=== PATIENT | female | born 1935 | race Caucasian/White ===

== ENCOUNTER 2019-07-16 19:42 | Inpatient (IN) | payer MEDICARE, OTHER ==
[~2019-07-16] VITALS: Ht 157.5 cm; Wt 46.6 kg
[2019-07-16] MEDS ORDERED: dilTIAZem 25 MG/5 ML VIAL IV ONE (21:00)
[2019-07-16 21:33] LABS: Basophils # (auto) 0.1 10 ^3/uL (0-0.2); Eosinophils # (auto) 0.1 10 ^3/uL (0-0.8); Platelet Count (auto) 186 10^3/uL (140-450)
[2019-07-16 21:36] LABS: Basophils % (auto) 0.9 % (0.0-2.0); Eosinophils % (auto) 0.9 % (0.0-7.0); Hematocrit 35.6 % (36.0-46.0); Hemoglobin 10.4 g/dL (12.2-16.2); Lymphocytes # (auto) 1.6 10 ^3/uL (0.4-5.4); Lymphocytes % (auto) 13.4 % (10.0-50.0); Mean Corpuscular Hemoglobin 25.6 pg (28.0-32.0); Mean Corpuscular Hgb Conc. 29.3 g/dL (32.0-36.0); Mean Corpuscular Volume 87.2 fL (80.0-100.0); Monocytes # (auto) 0.9 10 ^3/uL (0-1.3); Monocytes % (auto) 7.7 % (0.0-12.0); Neutrophils # (auto) 9.1 10 ^3/uL (1.6-8.6); Neutrophils % (auto) 77.1 % (37.0-80.0); Nucleated Red Blood Cells % 0.5 %; Red Blood Cells 4.08 10^6/uL (4.0-5.20); Red Cell Distribution Width 20.2 % (11.8-14.3); White Blood Cell 11.8 10^3/uL (4.4-10.8)
[2019-07-16 21:44] LABS: INR 1.44 (0.9-1.15); Partial Thromboplastin Time 28.4 sec (23.64-32.05)
[2019-07-16 21:58] LABS: Albumin 2.6 g/dL (3.4-5.0); Anion Gap 13 (5-15); Calcium 8.2 mg/dL (8.5-10.1); Carbon Dioxide 16 mmol/L (21-32); Chloride 110 mmol/L (98-107); Glucose 119 mg/dL (74-106); Potassium 4.9 mmol/L (3.5-5.1); Sodium 139 mmol/L (136-145)
[2019-07-16 22:00] LABS: Alanine Aminotransferase 34 U/L (13-56); Aspartate Aminotransferase 36 U/L (15-37); BUN/Creatinine Ratio 21.5; GFR African American 11 mL/min; GFR Non-African American 9 mL/min
[2019-07-16 22:02] LABS: Alkaline Phosphatase 146 U/L (45-117); Bilirubin, Total 0.7 mg/dL (0.2-1.0)
[2019-07-16 22:05] LABS: Blood Urea Nitrogen 102 mg/dL (7-18); Lactic Acid w/Reflex 4.5 mmol/L (0.4-2.0)
[2019-07-16] MEDS ORDERED: cefTRIAXone 1GM/50ML D5W 50 ML IV ONE (22:30)
[2019-07-16] MEDS ORDERED: PIPERACILLIN-TAZOB 2.25GM 50 ML IV ONE (22:30)
[2019-07-17] MEDS ORDERED: LORazepam 2MG/ML-1ML VIAL IV ONE (01:45)
[2019-07-17 02:46] LABS: Urine Amorphous Crystal FEW /hpf (None Seen); Urine Bacteria MOD /hpf (None Seen); Urine Blood Negative /uL (Negative); Urine Budding Yeast FEW /hpf (None Seen); Urine Hyaline Cast MOD /lpf (0 - 2); Urine Specific Gravity 1.019 (1.001-1.035)
[2019-07-17 02:48] LABS: Urine WBC 5 /hpf (0 - 5)
[2019-07-17] MEDS ORDERED: ONDANSETRON HCL 4 MG/2 ML VIAL IV PRN (03:15)
[2019-07-17] MEDS ORDERED: TEMAZEPAM 15 MG CAP PO PRN (03:15)
[2019-07-17] MEDS ORDERED: FUROSEMIDE 20 MG/2 ML VIAL IV ONE (03:15)
[2019-07-17] MEDS ORDERED: ACETAMINOPHEN 325 MG TAB PO PRN (03:15)
[2019-07-17] MEDS ORDERED: NITROGLYCERIN 0.4 MG SL TAB SL PRN (03:30)
[2019-07-17] MEDS ORDERED: MORPHINE SULF INJ 2 MG/ML SYRINGE 1ML IV PRN (03:30)
[2019-07-17] MEDS ORDERED: ALBUMIN 5% 250 ML IV ONE (03:45)
[2019-07-17 05:15] VITALS: BP 108/65
[2019-07-17] MEDS: CLINDAMYCIN 600MG IV 50 ML IV SCH ×3 (06:28→22:34)
[2019-07-17 07:57] LABS: BUN/Creatinine Ratio 22.4; Potassium 4.1 mmol/L (3.5-5.1)
[2019-07-17 09:00] VITALS: BP 99/66
[2019-07-17] MEDS ORDERED: SODIUM CHLORIDE 0.9% 1,000 ML IV SCH (09:30)
[2019-07-17] MEDS: CARVEDILOL 3.125 MG TAB PO SCH ×2 (10:00→22:33)
[2019-07-17] MEDS: ASPirin 81 mg TAB PO SCH (10:00)
[2019-07-17] MEDS: PANTOPRAZOLE 40 MG TAB PO SCH (10:00)
[2019-07-17 10:49] LABS: INR 1.35 (0.9-1.15)
[2019-07-17 13:00] VITALS: BP 98/48
[2019-07-17] MEDS: FUROSEMIDE 40 MG/4 ML VIAL IV SCH ×2 (13:23→18:00)
[2019-07-17 17:00] VITALS: BP 107/54
[2019-07-17] MEDS ORDERED: WARFARIN SODIUM 2 MG TAB PO ONE (17:00)
[2019-07-17] MEDS ORDERED: FUROSEMIDE 20 MG/2 ML VIAL IV SCH (18:00)
[2019-07-17] MEDS ORDERED: cefTRIAXone 1GM/50ML D5W 50 ML IV SCH (21:00)
[2019-07-17 22:00] VITALS: BP 135/73
[2019-07-17] MEDS ORDERED: ATORVASTATIN 20 MG TAB PO SCH (22:00)
[2019-07-17] MEDS: METOPROLOL TARTRATE 25 MG TAB PO SCH (22:34)
[2019-07-18 05:00] VITALS: BP 100/60
[2019-07-18] MEDS: CLINDAMYCIN 600MG IV 50 ML IV SCH ×2 (05:39→13:47)
[2019-07-18] MEDS: FUROSEMIDE 40 MG/4 ML VIAL IV SCH ×3 (05:40→17:26)
[2019-07-18 06:18] VITALS: BP 107/54
[2019-07-18 06:50] LABS: Basophils # (auto) 0.1 10 ^3/uL (0-0.2); Eosinophils # (auto) 0.1 10 ^3/uL (0-0.8); Eosinophils % (auto) 0.9 % (0.0-7.0); Monocytes # (auto) 0.8 10 ^3/uL (0-1.3)
[2019-07-18 06:51] LABS: Basophils % (auto) 0.5 % (0.0-2.0); Hemoglobin 9.2 g/dL (12.2-16.2); Lymphocytes # (auto) 1.6 10 ^3/uL (0.4-5.4); Lymphocytes % (auto) 15.6 % (10.0-50.0); Mean Corpuscular Hemoglobin 25.6 pg (28.0-32.0); Mean Corpuscular Hgb Conc. 30.8 g/dL (32.0-36.0); Monocytes % (auto) 7.3 % (0.0-12.0); Neutrophils # (auto) 7.9 10 ^3/uL (1.6-8.6); Neutrophils % (auto) 75.7 % (37.0-80.0); Nucleated Red Blood Cells % 1.5 %; Platelet Count (auto) 139 10^3/uL (140-450); Red Blood Cells 3.62 10^6/uL (4.0-5.20); White Blood Cell 10.5 10^3/uL (4.4-10.8)
[2019-07-18 06:57] LABS: INR 1.81 (0.9-1.15); Partial Thromboplastin Time 31.1 sec (23.64-32.05)
[2019-07-18 06:58] LABS: Albumin 2.6 g/dL (3.4-5.0); Calcium 8.4 mg/dL (8.5-10.1); Potassium 4.9 mmol/L (3.5-5.1)
[2019-07-18 07:03] LABS: Bilirubin, Total 0.6 mg/dL (0.2-1.0); Total Protein 6.5 g/dL (6.4-8.2)
[2019-07-18 07:36] LABS: BUN/Creatinine Ratio 21.3
[2019-07-18] MEDS ORDERED: SODIUM BICARBONATE 50ML VIAL 50 ML in SOD CHL 0.45% 1,000 ML IV SCH (09:00)
[2019-07-18] MEDS: METOPROLOL TARTRATE 25 MG TAB PO SCH (09:24)
[2019-07-18] MEDS: ASPirin 81 mg TAB PO SCH (09:24)
[2019-07-18] MEDS: CARVEDILOL 3.125 MG TAB PO SCH (09:24)
[2019-07-18] MEDS: PANTOPRAZOLE 40 MG TAB PO SCH (09:25)
[2019-07-18] MEDS ORDERED: SODIUM CHLORIDE 0.9% 1,000 ML IV ONE (09:30)
[2019-07-18] MEDS ORDERED: ALBUTEROL SULF 2.5 MG/0.5ML(0.5%) NEB SOLN NEB PRN (10:00)
[2019-07-18] MEDS ORDERED: IPRATROPIUM BROM 0.5 MG/2.5ML INH SOL NEB PRN (10:00)
[2019-07-18 10:28] LABS: Creatinine, Urine 190 mg/dL (30.0-125.0); Sodium Urine 10 mmol/L (40-220)
[2019-07-18 13:00] VITALS: BP 92/48
[2019-07-18 15:29] VITALS: BP 119/64
[2019-07-18] MEDS ORDERED: WARFARIN SODIUM 1 MG TAB PO ONE (17:00)
== END 2019-07-18 17:35 | disposition home or self-care (01) | DRG 871 ==
LOC: ER 19:42 → EDBD 19:42 → TELE 19:43 → TELE-WESTW 07-17 05:15
PROVIDERS: ADMIT Nurse Practitioner; ATTEND Family Medicine
DX: A41.9 Sepsis, unspecified organism (principal); I50.43 Acute on chronic combined systolic (congestive) and diastolic (congestive) heart failure; J96.20 Acute and chronic respiratory failure, unspecified whether with hypoxia or hypercapnia; N18.6 End stage renal disease; L03.116 Cellulitis of left lower limb; N17.9 Acute kidney failure, unspecified; I82.402 Acute embolism and thrombosis of unspecified deep veins of left lower extremity; I47.1 Supraventricular tachycardia; I13.2 Hypertensive heart and chronic kidney disease with heart failure and with stage 5 chronic kidney disease, or end stage renal disease; E87.2 Acidosis; Z66 Do not resuscitate; E11.65 Type 2 diabetes mellitus with hyperglycemia; E11.51 Type 2 diabetes mellitus with diabetic peripheral angiopathy without gangrene; I07.1 Rheumatic tricuspid insufficiency; R79.89 Other specified abnormal findings of blood chemistry; D64.9 Anemia, unspecified; I72.4 Aneurysm of artery of lower extremity; F03.90 Unspecified dementia, unspecified severity, without behavioral disturbance, psychotic disturbance, mood disturbance, and anxiety; E78.5 Hyperlipidemia, unspecified; E78.00 Pure hypercholesterolemia, unspecified; Z95.1 Presence of aortocoronary bypass graft; Z79.01 Long term (current) use of anticoagulants
CPT/HCPCS: 36415; 71045; 71250; 73700; 80048; 80053; 81001; 82570; 83605; 83880; 84300; 84484; 85025; 85610; 85730; 87040; 87804; 93005; 93306; 93926; 93971; 94640; 96365; 96367; 96375; G0378; J0696; J2543; J3490